=== PATIENT | male | born 1970 | race Caucasian/White ===

== ENCOUNTER 2021-01-24 14:20 | Outpatient (CLI) | payer BC ==
[~2021-01-24 14:20] MED LIST: Iopamidol-370 76% 500 ML 1 ML ONE
== END 2021-01-24 14:21 | disposition home or self-care (01) ==
LOC: BICCT 14:20
PROVIDERS: ATTEND Internal Medicine Cardiovascular Disease
DX: I71.2 Thoracic aortic aneurysm, without rupture (principal)
CPT/HCPCS: 71275; Q9967

== ENCOUNTER 2022-05-14 14:35 | Day surgery (SDC) | payer BC ==
[2022-05-14] MEDS ORDERED: Ketorolac Tromethamine 30 MG/ML VIAL ONE ×2 (15:10→19:48)
[2022-05-14 15:38] LABS: #Basophils 0.1 thou/uL (0.0-0.2); #Eosinphils 0.1 thou/uL (0.0-0.7); #Lymphocytes 3.1 thou/uL (1.20-3.40); #Monocytes 0.9 thou/uL (0.11-0.59); #Neutrophils 9.3 thou/uL (1.40-6.50); %Basophils 0.6 % (0.0-1.0); %Lymphocytes 22.9 % (21.0-51.0); %Monocytes 6.9 % (0.0-10.0); %Neutrophils 68.6 % (42.0-75.0); Hemoglobin 15.7 g/dL (14.0-18.0); Mean Corpuscular HGB CONC 33.6 g/dL (32.0-36.0); Mean Corpuscular Hemoglobin 31.9 pg (27.0-31.0); Mean Platelet Volume 8.4 fL (7.4-10.4); Platelet Count 204 thou/uL (130-400); RBC Distribution Width 11.6 % (11.5-14.5); Red Blood Cell (RBC) Count 4.93 mill/uL (4.70-6.10); White Blood Cell (WBC) Count 13.5 thou/uL (4.8-10.8)
[2022-05-14 15:59] LABS: ALT (SGPT) 22 U/L (8-55); AST (SGOT) 18 U/L (5-34); Albumin 4.2 g/dL (3.5-5.0); Alkaline Phosphatase 66 U/L (40-110); Anion Gap 13 mmol/L (10-20); BUN (Urea Nitrogen) 15 mg/dL (8.4-25.7); Bilirubin, Total 1.2 mg/dL (0.2-1.2); Calc. Creatinine Clearance 0 mL/min (70-130); Carbon Dioxide 24 mmol/L (22-29); Chloride 105 mmol/L (98-107); Estimated GFR 82; Globulin 2.7 g/dL (2.4-3.5); Glucose 89 mg/dL (70-105); Lipase 28 U/L (8-78); Potassium 4.1 mmol/L (3.5-5.1); Protein, Total 6.9 g/dL (6.0-8.3); Sodium 138 mmol/L (136-145)
[2022-05-14 17:13] LABS: Bilirubin Negative (Negative); Blood, Urine Negative (Negative); Clarity Clear (Clear); Glucose, Urine (Dipstick) Normal (Negative); Ketone, Urine Negative (Negative); Leukocyte Negative Leu/uL (Negative); Nitrite Negative (Negative); Protein, Urine (Dipstick) Negative (Neg-Trace); Specific Gravity, Urine 1.047 (1.002-1.036); Urobilinogen Normal mg/dL (Less than 2); pH, Urine 5.5 (5.0-9.0)
[2022-05-14] MEDS ORDERED: Piperacillin/Tazobactam 3.375 GM VIAL ONE (17:52)
[2022-05-14 18:30] LABS: SARS-CoV-2 NAA Rapid Test Not Detected (NotDetected)
[2022-05-14] MEDS ORDERED: Bupivacaine/Epinephrine 0.25% 30 ML VIAL ONE (19:07)
[2022-05-14] MEDS ORDERED: PROPOFOL 200 MG/20 ML VIAL ONE (19:48)
[2022-05-14] MEDS ORDERED: Dexamethasone 20 MG/5 ML VIAL ONE (19:48)
[2022-05-14] MEDS ORDERED: Rocuronium Bromide 10 MG/ML (10ML VIAL) ONE (19:48)
[2022-05-14] MEDS ORDERED: Lidocaine 1% PF 5 ML VIAL ONE (19:48)
[2022-05-14] MEDS ORDERED: Ondansetron PF 4 MG/2 ML Vial ONE (19:48)
[2022-05-14] MEDS ORDERED: Meperidine HCl/PF 25 MG/ML VIAL ONE (21:04)
[2022-05-14] MEDS ORDERED: Promethazine HCl 25 MG/ML VIAL IVPB PRN (21:08)
[2022-05-14] MEDS ORDERED: Ondansetron HCl/PF 4 MG/2 ML Vial IVP PRN (21:08)
[2022-05-14] MEDS ORDERED: Meperidine HCl/PF 25 MG/ML VIAL SLOW IVP PRN (21:08)
[2022-05-14] MEDS ORDERED: HYDROmorphone 2 MG/ML VIAL SLOW IVP PRN (21:08)
[2022-05-14] MEDS ORDERED: PACU-Morphine 4MG/ML VIAL SLOW IVP PRN (21:08)
[2022-05-14] MEDS ORDERED: Promethazine HCl 25 MG/ML VIAL IM PRN (21:08)
[2022-05-14] MEDS ORDERED: Fentanyl 100 MCG/2 ML VIAL ONE (21:31)
== END 2022-05-14 22:10 | disposition home or self-care (01) ==
LOC: ERS 14:35 → SDC/OP 18:12
PROVIDERS: ATTEND Surgery
PROC: 0DTJ4ZZ Resection of Appendix, Percutaneous Endoscopic Approach (ICD-10-PCS; principal; 2022-05-14)
DX: K35.30 Acute appendicitis with localized peritonitis, without perforation or gangrene (principal); K38.8 Other specified diseases of appendix; K66.0 Peritoneal adhesions (postprocedural) (postinfection); F17.220 Nicotine dependence, chewing tobacco, uncomplicated; Z91.14 Patient's other noncompliance with medication regimen; Z20.822 Contact with and (suspected) exposure to COVID-19
CPT/HCPCS: 74177; 80053; 81003; 83690; 85025; 88304; 96365; 96375; J1100; J1885; J2175; J2405; J2543; J2704; J3010; Q9967; U0002

== ENCOUNTER 2022-06-12 10:12 | Outpatient (CLI) | payer BC ==
[2022-06-12] MEDS ORDERED: Iopamidol 370 76% 100 ML VIAL ONE (15:12)
== END 2022-06-12 10:13 | disposition home or self-care (01) ==
LOC: CT 10:12
PROVIDERS: ATTEND Internal Medicine Cardiovascular Disease
DX: I71.2 Thoracic aortic aneurysm, without rupture (principal)
CPT/HCPCS: 71275; Q9967